=== PATIENT | female | born 1970 | race Hispanic/Latino ===

== ENCOUNTER → 2024-01-22 | Day surgery (SDC) | payer BC ==
[~2024-01-22] MED LIST: FENTANYL CITRATE/PF 100MCG/2 ML INJ ONE; HYOSCYAMINE SULFATE 0.5 MG/ML INJ ONE; LIDOCAINE HCL 2% LOCAL INJ 5 ML SDV VIAL INJ ONE; PROPOFOL IV EMULSION 10 MG/ML 20 ML VIAL ONE
[2024-01-22] MEDS: LACTATED RINGER'S 1,000 ML ONE (09:33)
[2024-01-22 12:00] VITALS: BP 102/69; PULSE 64; RESP 18; TEMP 97.2; O2SAT 99
== END | disposition home or self-care (01) ==
LOC: OR 06:30
PROVIDERS: ATTEND Internal Medicine Gastroenterology
DX: Z12.11 Encounter for screening for malignant neoplasm of colon (principal); D12.5 Benign neoplasm of sigmoid colon; K62.1 Rectal polyp; K64.8 Other hemorrhoids; Z68.24 Body mass index [BMI] 24.0-24.9, adult
CPT/HCPCS: 45385; 93005; J7121; 45378; J1980; J2001